=== PATIENT | female | born 1995 | race Caucasian/White ===

== ENCOUNTER 2017-08-22 01:29 | Emergency (ER) | payer OTHER ==
[~2017-08-22] VITALS: Ht 149.9 cm; Wt 53.1 kg
[2017-08-22 01:30] VITALS: BP 138/83
[2017-08-22 01:57] LABS: APPEARANCE,URINE SL CLOUDY (CLEAR); BILIRUBIN,URINE NEGATIVE (NEGATIVE); BLOOD, URINE NEGATIVE (NEGATIVE); COLOR,URINE YELLOW (YELLOW); LEUKOCYTE ESTERASE ,URINE 1+ (NEGATIVE); NITRITE, URINE NEGATIVE (NEGATIVE); PH,URINE 7.5 (5.0-9.0); UGLUCOSE NEGATIVE (NEGATIVE)
[2017-08-22 02:21] LABS: RBC,URINE 0-5 (RARE) /HPF (0-5)
[2017-08-22] MEDS ORDERED: IBUPROFEN 600 MG TAB PO ONE (03:35)
[2017-08-22] MEDS ORDERED: CIPROFLOXACIN 250 MG TAB PO ONE (03:35)
[2017-08-22 03:55] VITALS: BP 135/80
== END 2017-08-22 03:50 | disposition home or self-care (01) ==
LOC: MED 01:29
DX: N39.0 Urinary tract infection, site not specified (principal); K59.00 Constipation, unspecified
CPT/HCPCS: 36415; 81001; 81025; 84702; 87086; 99285